=== PATIENT | male | born 1955 | race Caucasian/White ===

== ENCOUNTER 2018-06-02 01:45 | Emergency (ER) | payer BC ==
[~2018-06-02] VITALS: Ht 177.8 cm; Wt 84.4 kg
[2018-06-02] MEDS ORDERED: IOVERSOL 350 MG/ML 100 ML VIAL ONE (02:00)
[2018-06-02] MEDS ORDERED: SODIUM CHLORIDE 0.9% 100 ML ONE (02:00)
[2018-06-02 02:03] LABS: HEMATOCRIT 43.5 % (41-53); HEMOGLOBIN 15.3 g/dL (13.5-17.5); LYMPHOCYTES # (AUTO) 1.9 K/uL (1.0-4.8); LYMPHOCYTES % (AUTO) 36.3 % (22.0-44.0); MEAN CORPUSCULAR HEMOGLOBIN 31.5 pg (26.0-34.0); MEAN CORPUSCULAR HGB CONC 35.2 G/dL (31.0-37.0); MEAN CORPUSCULAR VOLUME 90 fL (80-100); MONOCYTES # (AUTO) 0.6 K/uL (0.1-1.0); MONOCYTES % (AUTO) 11.4 % (2.0-9.0); NEUTROPHILS # (AUTO) 2.6 K/uL (1.8-7.7); NEUTROPHILS % (AUTO) 50.3 % (40.0-70.0); PLATELET COUNT (AUTO) 214 K/uL (150-450); RED BLOOD CELL COUNT(AUTO) 4.85 MIL/uL (4.50-5.90); RED CELL DISTRIBUTION WIDTH 13.1 % (11.5-14.5)
[2018-06-02 02:10] LABS: CREATININE 1.28 mg/dL (0.60-1.30); POTASSIUM 3.7 mmol/L (3.5-5.1)
[2018-06-02 02:11] LABS: CALCIUM, TOTAL 8.9 mg/dL (8.8-10.5)
[2018-06-02 02:16] LABS: ALBUMIN 3.5 g/dL (3.4-5.0); BILIRUBIN,TOTAL 0.3 mg/dL (0.1-1.0); TOTAL PROTEIN, SERUM 6.8 g/dL (6.4-8.2)
[2018-06-02] MEDS ORDERED: ASPIRIN 325 MG TABLET PO ONE (03:30)
[2018-06-02] MEDS ORDERED: HAWT500C PO (03:49)
[2018-06-02] MEDS ORDERED: ACETAMINOPHEN 325 MG TABLET PO PRN (04:15)
[2018-06-02] MEDS ORDERED: ONDANSETRON HCL 4 MG/2 ML VIAL IVP PRN (04:15)
[2018-06-02] MEDS ORDERED: 0.9% SODIUM CHLORIDE 10 ML SYRINGE IVP PRN (04:15)
[2018-06-02 05:07] VITALS: BP 167/90
== END 2018-06-02 05:48 | disposition left against medical advice (07) ==
LOC: EMS 01:45
DX: G45.9 Transient cerebral ischemic attack, unspecified (principal); I48.91 Unspecified atrial fibrillation
CPT/HCPCS: 36415; 70450; 70496; 71045; 80053; 82962; 84484; 85025; 85610; 85730; 86850; 86900; 86901; 93005; 99291; J7050; Q9967